=== PATIENT | female | born 1990 | race Hispanic/Latino ===

== ENCOUNTER 2018-12-09 19:34 | Observation (INO) | payer OTHER ==
[~2018-12-09] VITALS: Ht 157.5 cm; Wt 125.2 kg
[2018-12-09 20:08] LABS: APPEARANCE,URINE Clear (CLEAR); BILIRUBIN,URINE Negative (NEGATIVE); COLOR,URINE Yellow (YELLOW); GLUCOSE, URINE (UA) Negative (NEGATIVE); KETONES,URINE Negative (NEGATIVE); LEUKOCYTE ESTERASE ,URINE Trace (NEGATIVE); NITRATE,URINE Negative (NEGATIVE); OCCULT BLOOD,URINE Trace (NEGATIVE); PH,URINE 6.5 (5.0-8.0); PROTEIN,URINE Negative (NEGATIVE); UROBILINOGEN,URINE 0.2 mg/dL (0.2-1.0)
[2018-12-09 20:24] LABS: BACTERIA,URINE Rare /HPF (None Seen); SQUAMOUS EPITHELIAL CELL,UR Few /HPF (0-2); WBC,URINE 0-1 /HPF (0-1)
== END 2018-12-09 23:40 | disposition home or self-care (01) ==
LOC: EDH 19:34 → LDH 19:54
PROVIDERS: ADMIT Specialist; ATTEND Specialist
DX: O36.8130 Decreased fetal movements, third trimester, not applicable or unspecified (principal); Z3A.37 37 weeks gestation of pregnancy
CPT/HCPCS: 59025; 76805; 76819; 81001; 99284; G0378 ×4

== ENCOUNTER 2018-12-11 11:13 | Inpatient (IN) | payer OTHER ==
[~2018-12-11] VITALS: Ht 157.5 cm; Wt 124.7 kg
[2018-12-11] MEDS ORDERED: LACTATED RINGERS 1000ML IV SCH (11:45)
[2018-12-11] MEDS ORDERED: FAMC500T18 PO (11:49)
[2018-12-11] MEDS ORDERED: PREN-64 PO (11:49)
[2018-12-11 12:08] LABS: APPEARANCE,URINE Clear (CLEAR); BILIRUBIN,URINE Negative (NEGATIVE); COLOR,URINE Yellow (YELLOW); GLUCOSE, URINE (UA) Negative (NEGATIVE); KETONES,URINE Negative (NEGATIVE); LEUKOCYTE ESTERASE ,URINE Negative (NEGATIVE); NITRATE,URINE Negative (NEGATIVE); OCCULT BLOOD,URINE Trace (NEGATIVE); PROTEIN,URINE Negative (NEGATIVE); UROBILINOGEN,URINE 0.2 mg/dL (0.2-1.0)
[2018-12-11 12:16] LABS: BACTERIA,URINE Rare /HPF (None Seen); RBC,URINE 0-1 /HPF (0-1); SQUAMOUS EPITHELIAL CELL,UR Rare /HPF (0-2); TRANSITIONAL EPI CELLS,URINE Rare /HPF (None Seen); WBC,URINE 0-1 /HPF (0-1)
[2018-12-11] MEDS: LACTATED RINGERS 1000ML 1,000 ML IV PRN ×2 (17:00→21:12)
[2018-12-11 18:54] LABS: HEMATOCRIT 31.4 % (36-48); MEAN CORPUSCULAR HEMOGLOBIN 31.7 pg (27.0-33.0); MEAN CORPUSCULAR HGB CONC 34.2 g/dL (32.0-36.0); MEAN CORPUSCULAR VOLUME 92.4 fL (79-99); PLATELET COUNT (AUTO) 159 K/uL (130-400); RED BLOOD CELL COUNT(AUTO) 3.39 MIL/uL (4.00-5.50); RED CELL DISTRIBUTION WIDTH 14.2 % (11.0-15.5); WHITE BLOOD COUNT (AUTO) 9.2 K/uL (4.8-10.8)
[2018-12-11] MEDS: FAMCICLOVIR 500 MG PO SCH (21:00)
[2018-12-12] MEDS: LACTATED RINGERS 1000ML 1,000 ML IV PRN (08:19)
[2018-12-12] MEDS ORDERED: CEFAZOLIN SODIUM 1 GM VIAL IVP PRN (08:45)
[2018-12-12] MEDS: PRENATAL VITAMIN RX TABLET PO SCH (09:00)
[2018-12-12] MEDS ORDERED: DURAMORPH PF1 MG/ML 10ML AMP IV ONE (10:59)
[2018-12-12] MEDS ORDERED: FENTANYL CITRATE PF 50 MCG/1 ML 2ML VIAL ONE (10:59)
[2018-12-12] MEDS ORDERED: ONDANSETRON HCL 4 MG/2 ML VIAL ONE ×2 (11:50→18:29)
[2018-12-12] MEDS ORDERED: OXYTOCIN 10 UNIT/1ML 10ML VIAL ONE (12:03)
[2018-12-12] MEDS ORDERED: PHENYLEPHRINE HCL 10 MG/ML 1ML VIAL IV ONE (12:03)
[2018-12-12] MEDS ORDERED: OXYTOCIN-LR 20 UNITS/1000 ML 1,000 ML IV PRN (12:19)
[2018-12-12] MEDS ORDERED: SODIUM CHLORIDE 0.9% 10 ML VIAL IVP PRN (12:30)
[2018-12-12] MEDS ORDERED: PROMETHAZINE HCL 25 MG/ML 1ML AMPULE IM PRN ×2 (12:30→22:15)
[2018-12-12] MEDS ORDERED: MEPERIDINE-PF 75 MG/ML SYG IM PRN (12:30)
[2018-12-12 14:14] VITALS: BP 119/63
[2018-12-12 16:16] VITALS: BP 119/71
[2018-12-12] MEDS: LACTATED RINGERS 1000ML 1,000 ML IV SCH (18:59)
[2018-12-12 19:18] VITALS: BP 98/53
[2018-12-12] MEDS: FAMCICLOVIR 500 MG PO SCH (21:00)
[2018-12-12] MEDS ORDERED: METOCLOPRAMIDE 10 MG/2 ML VIAL IVP PRN (22:15)
[2018-12-12] MEDS ORDERED: EPHEDRINE SULFATE 50 MG/ML AMPULE IVP PRN (22:15)
[2018-12-12] MEDS ORDERED: HYDROCODONE/ACETAMINOPHEN 5/325 MG TAB PO PRN ×2 (22:15)
[2018-12-12] MEDS ORDERED: DiphenhydrAMINE HCL 50 MG/ML VIAL IVP PRN (22:15)
[2018-12-12] MEDS ORDERED: MORPHINE SULFATE 2 MG/ML 1ML SYG IVP PRN (22:15)
[2018-12-12] MEDS ORDERED: NALOXONE HCL 0.4 MG/1 ML ML IVP PRN ×2 (22:15)
[2018-12-12] MEDS ORDERED: ONDANSETRON HCL 4 MG/2 ML VIAL IVP PRN ×2 (22:15)
[2018-12-12] MEDS ORDERED: ONDANSETRON HCL 4 MG/2 ML 8 MG in SODIUM CHLORIDE 0.9% 50 ML IVP NR (22:15)
[2018-12-13] MEDS ORDERED: MEASLES/MUMPS/RUBELLA VACCINE, LIVE 0.5 ML/VIAL SQ ONE ×2 (00:09→00:15)
[2018-12-13 00:16] VITALS: BP 102/44
[2018-12-13] MEDS: LACTATED RINGERS 1000ML 1,000 ML IV SCH ×2 (01:55→09:33)
[2018-12-13 03:32] VITALS: BP 113/56
--- NOTE | 2018-12-13 04:00 | NUR ---
PT. SITTING UP IN CHAIR, ASSISTED BY HENRY BUCHANAN. WELL TOLERATED.
--- NOTE | 2018-12-13 05:00 | NUR ---
PT. ASSISTED BACK IN BED PER REQUEST, WELL TOLERATED. DENIED DISCOMFORT.
[2018-12-13 06:31] LABS: HEMATOCRIT 27.3 % (36-48); MEAN CORPUSCULAR HEMOGLOBIN 30.8 pg (27.0-33.0); MEAN CORPUSCULAR HGB CONC 33.3 g/dL (32.0-36.0); MEAN CORPUSCULAR VOLUME 92.5 fL (79-99); PLATELET COUNT (AUTO) 136 K/uL (130-400); RED BLOOD CELL COUNT(AUTO) 2.95 MIL/uL (4.00-5.50); RED CELL DISTRIBUTION WIDTH 14.3 % (11.0-15.5)
[2018-12-13 07:32] VITALS: BP 117/54
[2018-12-13 07:32] LABS: HEPATITIS Bs ANTIGEN SCREEN P Negative (Negative)
[2018-12-13] MEDS ORDERED: LANOLIN 30GM OINTMENT TP PRN (08:45)
[2018-12-13] MEDS ORDERED: ACETAMINOPHEN-CODEINE 300/30MG TAB PO PRN (08:45)
[2018-12-13] MEDS ORDERED: BISACODYL 10 MG SUPP.RECT RC PRN (08:45)
[2018-12-13] MEDS ORDERED: ACETAMINOPHEN EXTRA STRENGTH 500 MG TABLET PO PRN (08:45)
[2018-12-13] MEDS: DOCUSATE SODIUM 100 MG CAP PO SCH ×2 (09:34→21:01)
[2018-12-13] MEDS: IBUPROFEN 800 MG TAB PO SCH ×2 (09:34→17:04)
[2018-12-13] MEDS: PRENATAL VITAMIN RX TABLET PO SCH (09:34)
[2018-12-13 11:19] VITALS: BP 120/67
[2018-12-13 15:13] VITALS: BP 121/67
[2018-12-13] MEDS: SIMETHICONE 80 MG TAB.CHEW PO PRN ×2 (17:04→21:02)
[2018-12-13 19:30] VITALS: BP 113/58
--- NOTE | 2018-12-13 19:30 | NUR ---
ABDOMINAL DISTENTION MEICATED W/DULCOLAX SUPP FOR RELIEF OF GAS PAIN Addendum: 12/13/18 at 2355 by MICHAEL AHUMADA LVN Amended: Links added.
[2018-12-13] MEDS: FAMCICLOVIR 500 MG PO SCH (21:04)
[2018-12-14 00:35] VITALS: BP 127/70
[2018-12-14] MEDS: IBUPROFEN 800 MG TAB PO SCH ×3 (00:50→16:46)
[2018-12-14 01:10] VITALS: BP 105/65
[2018-12-14 03:35] VITALS: BP 122/72
[2018-12-14 07:38] VITALS: BP 120/81
--- NOTE | 2018-12-14 07:40 | NUR ---
VERBALIZED HAVING VOIDED AND HAD A BM THIS MORNING. PATIENT DUE TO BE DISCHARGED IF BABY IS DISCHARGED.
[2018-12-14] MEDS: SIMETHICONE 80 MG TAB.CHEW PO PRN ×3 (08:34→18:57)
[2018-12-14] MEDS: DOCUSATE SODIUM 100 MG CAP PO SCH (08:34)
[2018-12-14] MEDS: PRENATAL VITAMIN RX TABLET PO SCH (08:34)
[2018-12-14 11:32] VITALS: BP 108/58
--- NOTE | 2018-12-14 13:30 | NUR ---
DR. CAMARILLO ROUNDED AND DISCHARGED PATIENT IF BABY IS DISCHARGED.
--- NOTE | 2018-12-14 14:30 | NUR ---
DISCHARGE INSTRUCTIONS GIVEN AND PATIENT VERBALIZED UNDERSTANDING INSTRUCTIONS GIVEN. IS PENDING CIRCUMCISION TODAY AND SONO. DISCHARGE INSTRUCTIONS GIVEN AND SCRIPT GIVEN FOR HOME PAIN MANAGEMENT.
[2018-12-14 15:33] VITALS: BP 123/69
--- NOTE | 2018-12-14 18:30 | NUR ---
PATIENT STILL WAITING ON BABY TO BE DISCHARGED AND FINALLY VOIDED. BABY TO BE DISCHARGED TO MOM.
--- NOTE | 2018-12-14 19:15 | NUR ---
PATIENT WAS TAKEN VIA W/C CARRYING BABY IN CARSEAT AND WAS DISCHARGED TO SPOUSE IN STABLE CONDITION. PATIENT DENIES PAIN.
== END 2018-12-14 19:15 | disposition home or self-care (01) | DRG 788 ==
LOC: LDH 11:13 → OBSVTOIN 11:13 → WSH 12-12 14:10
PROVIDERS: ADMIT Specialist; ATTEND Specialist
PROC: 3E0134Z Introduction of Serum, Toxoid and Vaccine into Subcutaneous Tissue, Percutaneous Approach (ICD-10-PCS; 2018-12-12)
PROC: 10D00Z1 Extraction of Products of Conception, Low, Open Approach (ICD-10-PCS; principal; 2018-12-12 11:00)
DX: O24.420 Gestational diabetes mellitus in childbirth, diet controlled (principal); O36.8130 Decreased fetal movements, third trimester, not applicable or unspecified; O99.344 Other mental disorders complicating childbirth; F41.9 Anxiety disorder, unspecified; Z37.0 Single live birth; Z3A.37 37 weeks gestation of pregnancy; Z23 Encounter for immunization
CPT/HCPCS: 36415; 59025; 59510; 76819; 81001; 85027; 86592; 86850; 86900; 86901; 87340; 90707; 96360; 96361; A4344; A4606; G0378; J0690; J2274; J2370; J2405; J2590; J3010; J7120

== ENCOUNTER 2019-02-05 16:03 | Emergency (ER) | payer MEDICAID ==
[~2019-02-05 16:03] MED LIST: FAMC500T18 PO; PREN-64 PO
[2019-02-05 16:39] LABS: EOSINOPHILS % (AUTO) 2.9 % (0.0-8.0); HEMATOCRIT 37.7 % (36-48); LYMPHOCYTES % (AUTO) 39.9 % (21.0-51.0); MEAN CORPUSCULAR HEMOGLOBIN 29.9 pg (27.0-33.0); MEAN CORPUSCULAR HGB CONC 33.7 g/dL (32.0-36.0); MEAN CORPUSCULAR VOLUME 88.7 fL (79-99); MONOCYTES % (AUTO) 6.6 % (3.0-13.0); NEUTROPHILS % (AUTO) 49.6 % (40.0-77.0); NUCLEATED RED BLOOD CELLS 0.1 % (0.0-0.19); PLATELET COUNT (AUTO) 255 K/uL (130-400); RED BLOOD CELL COUNT(AUTO) 4.25 MIL/uL (4.00-5.50); RED CELL DISTRIBUTION WIDTH 13.8 % (11.0-15.5)
[2019-02-05 16:52] LABS: CREATININE 0.8 mg/dL (0.5-1.5); POTASSIUM 4.1 mmol/L (3.5-5.1)
[2019-02-05 16:55] LABS: INR 0.91 (0.85-1.15); PARTIAL THROMBOPLASTIN TIME 27.1 SEC (26.3-35.5); PROTHROMBIN TIME 9.6 SEC (9.6-11.6)
[2019-02-05 17:02] LABS: ALBUMIN 3.8 g/dL (3.5-5.0); BILIRUBIN,TOTAL 0.2 mg/dL (0.2-1.0); TOTAL PROTEIN, SERUM 7.5 g/dL (6.0-8.3)
[2019-02-05 18:47] LABS: HEMATOCRIT 36.7 % (36-48)
[2019-02-05] MEDS ORDERED: ONDANSETRON HCL 4 MG/2 ML VIAL ONE (19:01)
== END 2019-02-05 19:16 | disposition home or self-care (01) ==
LOC: EDH 16:03
DX: N92.0 Excessive and frequent menstruation with regular cycle (principal); Z90.49 Acquired absence of other specified parts of digestive tract; Z98.890 Other specified postprocedural states
CPT/HCPCS: 36415; 76856; 80053; 84702; 85014; 85018; 85025; 85610; 85730; 86850; 86900; 86901; 96374; 99284; J2405

== ENCOUNTER 2021-05-12 12:22 | Observation (INO) | payer MEDICAID ==
[~2021-05-12] VITALS: Ht 160 cm; Wt 114.8 kg
[~2021-05-12 12:22] MED LIST changes: -FAMC500T18 PO; +FAMC500T8 PO
[2021-05-12 12:24] VITALS: BP 113/57
[2021-05-12 13:21] LABS: APPEARANCE,URINE Clear (CLEAR); BILIRUBIN,URINE Negative (NEGATIVE); COLOR,URINE Yellow (YELLOW); GLUCOSE, URINE (UA) Negative (NEGATIVE); KETONES,URINE Negative (NEGATIVE); LEUKOCYTE ESTERASE ,URINE Negative (NEGATIVE); NITRATE,URINE Negative (NEGATIVE); OCCULT BLOOD,URINE Nonhemolyzed Trace (NEGATIVE); PH,URINE 7.5 (5.0-8.0); PROTEIN,URINE Negative (NEGATIVE); UROBILINOGEN,URINE 0.2 mg/dL (0.2-1.0)
[2021-05-12 13:40] LABS: BACTERIA,URINE Rare /HPF (None Seen); SQUAMOUS EPITHELIAL CELL,UR Few /HPF (0-2); WBC,URINE 0-1 /HPF (0-1)
== END 2021-05-12 14:15 | disposition home or self-care (01) ==
LOC: EDH 12:22 → LDH 12:23
PROVIDERS: ADMIT Specialist; ATTEND Specialist
DX: O26.892 Other specified pregnancy related conditions, second trimester (principal); N89.8 Other specified noninflammatory disorders of vagina; Z3A.23 23 weeks gestation of pregnancy
CPT/HCPCS: 59025; 76815; 81001; G0378

== ENCOUNTER 2021-08-09 11:45 | Observation (INO) | payer OTHER, MEDICAID ==
[~2021-08-09] VITALS: Ht 160 cm; Wt 122.5 kg
[2021-08-09] MEDS: LACTATED RINGERS 1000ML IV SCH ×2 (12:28→15:50)
[2021-08-09] MEDS ORDERED: 0.9%NACL 10ML VIAL IVP PRN (15:00)
[2021-08-09] MEDS ORDERED: CEFAZOLIN SODIUM 100 GM IV SCH (15:00)
[2021-08-09] MEDS ORDERED: OXYTOCIN-LR 20 UNITS/1000 ML 1,000 ML IV PRN (15:00)
[2021-08-09] MEDS ORDERED: PROMETHAZINE HCL 25 MG/ML 1ML AMPULE IM PRN (15:00)
[2021-08-09] MEDS ORDERED: MEPERIDINE-PF 75 MG/ML SYG IM PRN (15:00)
[2021-08-09] MEDS ORDERED: DEXTROSE 5 %-0.45 % NACL 1,000 ML IV PRN (15:00)
[2021-08-09] MEDS ORDERED: INSULIN HUMULIN R 100 UNIT/ML 3ML SQ SCH (16:30)
[2021-08-09] MEDS ORDERED: LABETALOL HCL 100 MG TABLET PO SCH (21:00)
[2021-08-09 21:55] LABS: APPEARANCE,URINE Clear (CLEAR); BILIRUBIN,URINE Negative (NEGATIVE); COLOR,URINE Yellow (YELLOW); GLUCOSE, URINE (UA) Negative (NEGATIVE); KETONES,URINE 40 mg/dL (NEGATIVE); LEUKOCYTE ESTERASE ,URINE Moderate (NEGATIVE); NITRATE,URINE Negative (NEGATIVE); OCCULT BLOOD,URINE Negative (NEGATIVE); PH,URINE 6.5 (5.0-8.0); PROTEIN,URINE Negative (NEGATIVE)
[2021-08-09 22:13] LABS: MUCUS,URINE Few LPF (None Seen)
[2021-08-09 22:14] LABS: SQUAMOUS EPITHELIAL CELL,UR 30-50 /HPF (0-2)
[2021-08-09 22:20] LABS: YEAST,URINE BUDDING Rare /HPF (None Seen)
[2021-08-09 22:21] LABS: BACTERIA,URINE Few /HPF (None Seen); RBC,URINE 0-1 /HPF (0-1)
[2021-08-10] MEDS: LACTATED RINGERS 1000ML IV SCH (01:09)
== END 2021-08-10 09:00 | disposition home or self-care (01) ==
LOC: LDH 11:45
PROVIDERS: ADMIT Specialist; ATTEND Specialist
DX: O36.8130 Decreased fetal movements, third trimester, not applicable or unspecified (principal); Z3A.36 36 weeks gestation of pregnancy; Z98.891 History of uterine scar from previous surgery
CPT/HCPCS: 59025; 76815; 76819; 81001; 87088; 96360; 96361 ×4; G0378 ×21; G0379; J7120 ×2

== ENCOUNTER 2021-08-22 14:00 | Inpatient (IN) | payer OTHER, MEDICAID ==
[~2021-08-22] VITALS: Ht 160 cm; Wt 124.3 kg
[2021-08-23] MEDS ORDERED: CEFAZOLIN SODIUM 1 GM VIAL IVP PRN (06:30)
[2021-08-23 10:22] LABS: HEMATOCRIT 34.8 % (36-48); MEAN CORPUSCULAR HEMOGLOBIN 30.1 pg (27.0-33.0); MEAN CORPUSCULAR HGB CONC 32.8 g/dL (32.0-36.0); MEAN CORPUSCULAR VOLUME 91.8 fL (79-99); RED BLOOD CELL COUNT(AUTO) 3.79 MIL/uL (4.00-5.50); RED CELL DISTRIBUTION WIDTH 13.8 % (11.0-15.5); WHITE BLOOD COUNT (AUTO) 8.4 K/uL (4.8-10.8)
[2021-08-23] MEDS ORDERED: OXYTOCIN 10 UNIT/1ML 10ML VIAL ONE (13:22)
[2021-08-23] MEDS ORDERED: PHENYLEPHRINE HCL 10 MG/ML 1ML VIAL IV ONE (13:22)
[2021-08-23] MEDS ORDERED: DEXAMETHASONE SOD PHOSPHATE 10MG/ML 1ML VIAL ONE (13:22)
[2021-08-23] MEDS ORDERED: EPHEDRINE SULFATE 50 MG/ML AMPULE ONE (13:23)
[2021-08-23] MEDS ORDERED: ONDANSETRON 4MG INJ ONE (13:23)
[2021-08-23] MEDS ORDERED: MORPHINE PF 100MG/10ML AMP IV ONE (13:23)
[2021-08-23] MEDS ORDERED: CEFAZOLIN SODIUM 1 GM VIAL IVP ONE (13:25)
[2021-08-23] MEDS ORDERED: OXYTOCIN-LR 20 UNITS/1000 ML 1,000 ML IV PRN (16:00)
[2021-08-23] MEDS ORDERED: PROMETHAZINE HCL 25 MG/ML 1ML AMPULE IM PRN (16:00)
[2021-08-23] MEDS ORDERED: MEPERIDINE-PF 75 MG/ML SYG IM PRN (16:00)
[2021-08-23] MEDS ORDERED: 0.9%NACL 10ML VIAL IVP PRN (16:00)
[2021-08-23 17:09] VITALS: BP 99/42
[2021-08-23] MEDS ORDERED: NALOXONE HCL 0.4 MG/1 ML ML IVP PRN ×3 (19:30)
[2021-08-23] MEDS ORDERED: EPHEDRINE SULFATE 50 MG/ML AMPULE IVP PRN (19:30)
[2021-08-23] MEDS ORDERED: ONDANSETRON 4MG INJ IVP PRN (19:30)
[2021-08-23] MEDS ORDERED: DiphenhydrAMINE HCL 50 MG/ML VIAL IVP PRN (19:30)
[2021-08-23 20:35] VITALS: BP 106/54
[2021-08-23] MEDS: DEXTROSE 5 %-0.45 % NACL 1,000 ML IV PRN (21:20)
[2021-08-24] VITALS (8 sets, daily range): BP systolic 97–136; BP diastolic 42–69
[2021-08-24] MEDS: DEXTROSE 5 %-0.45 % NACL 1,000 ML IV PRN (04:02)
[2021-08-24 06:42] LABS: HEMATOCRIT 28.3 % (36-48); MEAN CORPUSCULAR HEMOGLOBIN 30.6 pg (27.0-33.0); MEAN CORPUSCULAR HGB CONC 33.2 g/dL (32.0-36.0); MEAN CORPUSCULAR VOLUME 92.2 fL (79-99); RED BLOOD CELL COUNT(AUTO) 3.07 MIL/uL (4.00-5.50); RED CELL DISTRIBUTION WIDTH 13.8 % (11.0-15.5); WHITE BLOOD COUNT (AUTO) 15.4 K/uL (4.8-10.8)
[2021-08-24] MEDS ORDERED: ACETAMINOPHEN 500 MG TABLET PO PRN (09:00)
[2021-08-24] MEDS ORDERED: BISACODYL 10 MG SUPP.RECT RC PRN (09:00)
[2021-08-24] MEDS ORDERED: HYDROCODONE/ACETAMINOPHEN 5/325 MG TAB PO PRN (09:00)
[2021-08-24] MEDS ORDERED: ACETAMINOPHEN WITH CODEINE 1 TAB TAB PO PRN (09:00)
[2021-08-24] MEDS ORDERED: LANOLIN 30GM OINTMENT TP PRN (09:00)
[2021-08-24] MEDS: IBUPROFEN 600 MG TABLET PO PRN ×2 (09:43→17:42)
[2021-08-24] MEDS: DOCUSATE SODIUM 100 MG CAP PO SCH ×2 (09:43→20:39)
[2021-08-24] MEDS: SIMETHICONE 80 MG TAB.CHEW PO PRN ×2 (09:43→20:39)
[2021-08-24] MEDS ORDERED: MEASLES/MUMPS/RUBELLA VACCINE, LIVE 0.5 ML/VIAL SQ SCH (15:30)
[2021-08-24] MEDS ORDERED: WITCH HAZEL 1 PAD TP PRN (18:30)
[2021-08-25] MEDS: IBUPROFEN 600 MG TABLET PO PRN ×2 (00:23→09:05)
[2021-08-25 03:04] VITALS: BP 127/68
[2021-08-25 07:30] VITALS: BP 114/46
[2021-08-25] MEDS: SIMETHICONE 80 MG TAB.CHEW PO PRN (09:05)
[2021-08-25] MEDS: DOCUSATE SODIUM 100 MG CAP PO SCH (09:05)
[2021-08-25 11:14] VITALS: BP 106/64
== END 2021-08-25 13:00 | disposition home or self-care (01) | DRG 785 ==
LOC: LDH 08-23 05:23 → WSH 08-23 16:45
PROVIDERS: ADMIT Specialist; ATTEND Specialist
PROC: 10D00Z1 Extraction of Products of Conception, Low, Open Approach (ICD-10-PCS; 2021-08-23)
PROC: 3E0134Z Introduction of Serum, Toxoid and Vaccine into Subcutaneous Tissue, Percutaneous Approach (ICD-10-PCS; 2021-08-23)
PROC: 0UB70ZZ Excision of Bilateral Fallopian Tubes, Open Approach (ICD-10-PCS; principal; 2021-08-23 13:00)
DX: O34.211 Maternal care for low transverse scar from previous cesarean delivery (principal); O36.5930 Maternal care for other known or suspected poor fetal growth, third trimester, not applicable or unspecified; O99.214 Obesity complicating childbirth; E66.01 Morbid (severe) obesity due to excess calories; Z20.822 Contact with and (suspected) exposure to COVID-19; Z30.2 Encounter for sterilization; Z37.0 Single live birth; Z3A.38 38 weeks gestation of pregnancy; Z86.32 Personal history of gestational diabetes; Z90.49 Acquired absence of other specified parts of digestive tract; Z23 Encounter for immunization
CPT/HCPCS: 36415; 59510; 85027; 86592; 86850; 86900; 86901; 87635; 90707; A4344; G0378; J0690; J1100; J2274; J2370; J2405; J2590; J3490; J7120